=== PATIENT | female | born 2000 | race Caucasian/White ===

== ENCOUNTER 2020-12-08 17:23 | Emergency (ER) | payer OTHER ==
[~2020-12-08 17:23] MED LIST: NAPROSYN500 MG PO
== END 2020-12-08 23:55 | disposition home or self-care (01) ==
LOC: ER1 17:23
DX: S61.210A Laceration without foreign body of right index finger without damage to nail, initial encounter (principal); F17.210 Nicotine dependence, cigarettes, uncomplicated; Z23 Encounter for immunization; W26.9XXA Contact with unspecified sharp object(s), initial encounter; Y92.009 Unspecified place in unspecified non-institutional (private) residence as the place of occurrence of the external cause
CPT/HCPCS: 12001; 73130; 90471; 90714; 99283